=== PATIENT | male | born 1985 | race Caucasian/White ===

== ENCOUNTER 2018-04-29 12:51 | Emergency (ER) | payer SELFPAY ==
[~2018-04-29] VITALS: Ht 172.7 cm; Wt 115.7 kg
[2018-04-29] MEDS ORDERED: TAMSULOSIN 0.4 MG CAP.ER.24H. PO ONE (13:15)
[2018-04-29] MEDS ORDERED: MORPHINE SULFATE 10 MG/ML VIAL. IV ONE (13:15)
[2018-04-29] MEDS ORDERED: KETOROLAC 30 MG/ML VIAL. IV ONE (13:15)
--- NOTE | 2018-04-29 13:15 | PHYS DOC ---
Adult General Chief Complaint Chief Complaint: FLANK PAIN HPI HPI Patient is a 32 year old male who presents with 10 out of 10 left flank pain radiating to the left abdomen that began 3 days ago. Patient denies any fever. He states he is feeling nauseated though he just came from the mother's . Patient describes the pain as cramping and constant. He states he took hydrocodone with no relief. Patient denies any personal history of kidney stones but states he has extensive family history of kidney stones. Patient denies any hematuria. Denies any urgency frequency or dysuria. Review of Systems Review of Systems Constitutional: Denies fever or chills [] Eyes: Denies change in visual acuity, redness, or eye pain [] HENT: Denies nasal congestion or sore throat [] Respiratory: Denies cough or shortness of breath [] Cardiovascular: No additional information not addressed in HPI [] GI: Denies abdominal pain, nausea, vomiting, bloody stools or diarrhea [] : Reports left flank pain. Denies dysuria or hematuria [] Musculoskeletal: Denies back pain or joint pain [] Integument: Denies rash or skin lesions [] Neurologic: Denies headache, focal weakness or sensory changes [] All other systems were reviewed and found to be within normal limits, except as documented in this note. Current Medications Current Medications Current Medications Medications (Trade) Dose Ordered Sig/Michaela Start Time Stop Time Status Last Admin Dose Admin Ketorolac Tromethamine (Toradol 30mg Vial) 30 mg 1X ONCE 04/29/18 13:15 04/29/18 13:16 DC 04/29/18 13:34 30 MG Morphine Sulfate (Morphine Sulfate) 5 mg 1X ONCE 04/29/18 13:15 04/29/18 13:16 DC 04/29/18 13:34 5 MG Tamsulosin HCl (Flomax) 0.4 mg 1X ONCE 04/29/18 13:15 04/29/18 13:16 DC 04/29/18 13:33 0.4 MG Allergies Allergies Allergies Coded Allergies Type Severity Reaction Last Updated Verified Penicillins Allergy Intermediate Rash 04/29/18 Yes amoxicillin Allergy Intermediate Rash 04/29/18 Yes Physical Exam Physical Exam Constitutional: Well developed, well nourished, no acute distress, non-toxic appearance. [] HENT: Normocephalic, atraumatic, bilateral external ears normal, oropharynx moist, no oral exudates, nose normal. [] Eyes: PERRLA, EOMI, conjunctiva normal, no discharge. [] Neck: Normal range of motion, no tenderness, supple, no stridor. [] Cardiovascular:Heart rate regular rhythm, no murmur [] Lungs & Thorax: Bilateral breath sounds clear to auscultation [] Abdomen: Bowel sounds normal, soft, no tenderness, no masses, no pulsatile masses. [] Skin: Warm, dry, no erythema, no rash. [] Back: No tenderness, moderate left CVA tenderness. [] Extremities: No tenderness, no cyanosis, no clubbing, ROM intact, no edema. [] Neurologic: Alert and oriented X 3, normal motor function, normal sensory function, no focal deficits noted. [] Psychologic: Appears anxious. Current Patient Data Vital Signs Vital Signs Date Time Temp Pulse Resp B/P (MAP) Pulse Ox O2 Delivery O2 Flow Rate FiO2 04/29/18 13:11 98.0 72 22 138/86 (103) 97 Room Air 98.0 Lab Values Laboratory Tests Test 04/29/18 13:00 04/29/18 13:25 Urine Collection Type Void Urine Color Yellow Urine Clarity Clear Urine pH 5.5 Urine Specific Clifford 1.020 Urine Protein Negative mg/dL (NEG-TRACE) Urine Glucose (UA) Negative mg/dL (NEG) Urine Ketones (Stick) Negative mg/dL (NEG) Urine Blood Small (NEG) Urine Nitrite Negative (NEG) Urine Bilirubin Negative (NEG) Urine Urobilinogen Dipstick 0.2 mg/dL (0.2 mg/dL) Urine Leukocyte Esterase Negative (NEG) Urine RBC 6-10 /HPF (0-2) Urine WBC 0 /HPF (0-4) Urine Squamous Epithelial Cells Occ /LPF Urine Bacteria 0 /HPF (0-FEW) Urine Mucus Mod /LPF White Blood Count 9.1 x10^3/uL (4.0-11.0) Red Blood Count 5.25 x10^6/uL (4.30-5.70) Hemoglobin 15.0 g/dL (13.0-17.5) Hematocrit 44.3 % (39.0-53.0) Mean Corpuscular Volume 84 fL (79-100) Mean Corpuscular Hemoglobin 29 pg (25-35) Mean Corpuscular Hemoglobin Concent 34 g/dL (31-37) Red Cell Distribution Width 13.3 % (11.5-14.5) Platelet Count 319 x10^3/uL (140-400) Neutrophils (%) (Auto) 66 % (31-73) Lymphocytes (%) (Auto) 25 % (24-48) Monocytes (%) (Auto) 7 % (0-9) Eosinophils (%) (Auto) 2 % (0-3) Basophils (%) (Auto) 1 % (0-3) Neutrophils # (Auto) 6.0 x10^3uL (1.8-7.7) Lymphocytes # (Auto) 2.2 x10^3/uL (1.0-4.8) Monocytes # (Auto) 0.6 x10^3/uL (0.0-1.1) Eosinophils # (Auto) 0.2 x10^3/uL (0.0-0.7) Basophils # (Auto) 0.0 x10^3/uL (0.0-0.2) Sodium Level 138 mmol/L (136-145) Potassium Level 4.1 mmol/L (3.5-5.1) Chloride Level 101 mmol/L (98-107) Carbon Dioxide Level 27 mmol/L (21-32) Anion Gap 10 (6-14) Blood Urea Nitrogen 15 mg/dL (8-26) Creatinine 1.1 mg/dL (0.7-1.3) Estimated GFR (Cockcroft-Gault) 77.6 BUN/Creatinine Ratio 14 (6-20) Glucose Level 98 mg/dL (70-99) Calcium Level 9.1 mg/dL (8.5-10.1) Total Bilirubin 0.5 mg/dL (0.2-1.0) Aspartate Amino Transferase (AST) 26 U/L (15-37) Alanine Aminotransferase (ALT) 59 U/L (16-63) Alkaline Phosphatase 85 U/L (46-116) Total Protein 7.9 g/dL (6.4-8.2) Albumin 4.1 g/dL (3.4-5.0) Albumin/Globulin Ratio 1.1 (1.0-1.7) Lipase 81 U/L (73-393) Laboratory Tests 04/29/18 13:25 Laboratory Tests 04/29/18 13:25 EKG EKG [] Radiology/Procedures Radiology/Procedures []PROCEDURE: CT ABDOMEN PELVIS WO CONTRAST EXAM: CT Abdomen and Pelvis without IV contrast CLINICAL HISTORY: INTERMITTENT LEFT SIDE FLANK PAIN X3DAYS. NO PRIORS COMPARISON: none TECHNIQUE: Helical CT of the abdomen and pelvis without intravenous contrast. Axial, coronal and sagittal reformatted images were generated. PQRS compliance statement - One or more of the following individualized dose reduction techniques were utilized for this study: 1. Automated exposure control 2. Adjustment of the mA and/or kV according to patient size 3. Use of iterative reconstruction technique FINDINGS: Lack of intravenous contrast limits evaluation of solid organs, vasculature, and lymph nodes. Lower chest: Patchy middle and lingular lobe opacities likely atelectasis. Abdomen and Pelvis: Low-attenuation of the liver consistent with hepatic steatosis. Associated fatty sparing is seen in the gallbladder fossa. Gallbladder is unremarkable. No biliary ductal dilatation. Adrenal glands are normal. No focal renal lesion. No hydronephrosis. No hydroureter. A 4 mm calculus is seen at the left ureterovesicular junction or dependent bladder. Moderate colonic stool content is seen. No evidence of bowel obstruction. Appendix is normal. No abdominal or pelvic ascites. Small fat-containing femoral hernia. Bones: Osseous structures are unremarkable. IMPRESSION: 1. 4 mm calculus at the left ureterovesicular junction or dependent aspect of the bladder. No hydronephrosis or hydroureter. 2. Hepatic steatosis. 3. Small fat-containing periumbilical hernia. Electronically signed by: Edenilson Gonzalez MD (04/29/2018 1:51 PM) [facility] DICTATED and SIGNED BY: EDENILSON GONZALEZ MD DATE: 04/29/18 9551 Course & Med Decision Making Course & Med Decision Making Pertinent Labs and Imaging studies reviewed. (See chart for details) This is a 32-year-old male patient presenting to the ED today with left flank pain that began 3 days ago. Urine analysis is negative for infection, noted for small amount of blood. CBC with normal WBC, CMP with no acute findings. CT of the abdomen and pelvic with no contrast was noted for 4 mm stone at the left UVJ , no hydronephrosis, no hydroureter. Patient was given morphine, Flomax, Toradol and Zofran and IV fluids in the ED with good relief. He'll be discharged with Zofran, Flomax and hydrocodone as needed for pain. Follow-up with the urologist next week if symptoms persist. Dragon Disclaimer Dragon Disclaimer This electronic medical record was generated, in whole or in part, using a voice recognition dictation system. Departure Departure Impression: Primary Impression: Kidney stone Disposition: HOME, SELF-CARE Condition: STABLE Referrals: JOHN FRAIRE MD follow up next week Patient Instructions: Kidney Stones, [id number] Additional Instructions: You were evaluated in the emergency room and noted to have a 4 mm kidney stone. This size of a stone typically passes on its own. Take the prescribed medications as ordered. Follow-up with the provided urologist next week if symptoms persist. Come back to the ED at any point symptoms worsen. Scripts Naproxen (NAPROXEN) 500 Mg Tablet 1 TAB PO BID, #60 TAB 1 Refill Prov: CAITLIN HAUSER APRN 04/29/18 Ondansetron (ZOFRAN ODT) 4 Mg Tab.rapdis 1 TAB SL Q8HRS, #15 TAB Prov: CAITLIN HAUSER APRN 04/29/18 Tamsulosin Hcl (FLOMAX) 0.4 Mg Cap.er.24h 1 CAP PO DAILY, #7 CAP 0 Refills Prov: CAITLIN HAUSER APRN 04/29/18 Hydrocodone/Apap 5-325 (NORCO 5-325 TABLET) 1 Each Tablet 1-2 TAB PO Q4-6HRS PRN for PAIN, #20 TAB Prov: CAITLIN HAUSER APRN 04/29/18 CAITLIN HAUSER APRN Apr 29, 2018 13:15
[2018-04-29 13:18] LABS: BILIRUBIN,URINE NEGATIVE (NEG); CLARITY,URINE CLEAR; COLOR,URINE YELLOW; NITRITE,URINE NEGATIVE (NEG); PH,URINE 5.5; PROTEIN,URINE NEGATIVE (NEG-TRACE); UROBILINOGEN,URINE 0.2 mg/dL (0.2 mg/dL)
[2018-04-29 13:37] LABS: BACTERIA,URINE 0 /HPF (0-FEW); SQUAMOUS EPITHELIAL CELL,UR OCC /LPF; WBC,URINE 0 /HPF (0-4)
[2018-04-29 13:49] LABS: BASO % 1 % (0-3); CALCIUM 9.1 mg/dL (8.5-10.1); CREATININE 1.1 mg/dL (0.7-1.3); EOS # 0.2 x10^3/uL (0.0-0.7); EOS % 2 % (0-3); GFR 77.6; HEMATOCRIT 44.3 % (39.0-53.0); LYMPH # 2.2 x10^3/uL (1.0-4.8); LYMPH % 25 % (24-48); MEAN CORPUSCULAR HEMOGLOBIN 29 pg (25-35); MEAN CORPUSCULAR HGB CONC 34 g/dL (31-37); MEAN CORPUSCULAR VOLUME 84 fL (79-100); MONO # 0.6 x10^3/uL (0.0-1.1); MONO % 7 % (0-9); NEUT % 66 % (31-73); PLATELET COUNT 319 x10^3/uL (140-400); POTASSIUM 4.1 mmol/L (3.5-5.1); RED BLOOD COUNT 5.25 x10^6/uL (4.30-5.70); RED CELL DISTRIBUTION WIDTH 13.3 % (11.5-14.5); WHITE BLOOD COUNT 9.1 x10^3/uL (4.0-11.0)
--- NOTE | 2018-04-29 13:54 | RAD ---
EXAM: CT Abdomen and Pelvis without IV contrast CLINICAL HISTORY: INTERMITTENT LEFT SIDE FLANK PAIN X3DAYS. NO PRIORS COMPARISON: none TECHNIQUE: Helical CT of the abdomen and pelvis without intravenous contrast. Axial, coronal and sagittal reformatted images were generated. PQRS compliance statement - One or more of the following individualized dose reduction techniques were utilized for this study: 1. Automated exposure control 2. Adjustment of the mA and/or kV according to patient size 3. Use of iterative reconstruction technique FINDINGS: Lack of intravenous contrast limits evaluation of solid organs, vasculature, and lymph nodes. Lower chest: Patchy middle and lingular lobe opacities likely atelectasis. Abdomen and Pelvis: Low-attenuation of the liver consistent with hepatic steatosis. Associated fatty sparing is seen in the gallbladder fossa. Gallbladder is unremarkable. No biliary ductal dilatation. Adrenal glands are normal. No focal renal lesion. No hydronephrosis. No hydroureter. A 4 mm calculus is seen at the left ureterovesicular junction or dependent bladder. Moderate colonic stool content is seen. No evidence of bowel obstruction. Appendix is normal. No abdominal or pelvic ascites. Small fat-containing femoral hernia. Bones: Osseous structures are unremarkable. IMPRESSION: 1. 4 mm calculus at the left ureterovesicular junction or dependent aspect of the bladder. No hydronephrosis or hydroureter. 2. Hepatic steatosis. 3. Small fat-containing periumbilical hernia. Electronically signed by: Edenilson Gonzalez MD (04/29/2018 1:51 PM) [facility]
[2018-04-29 13:55] LABS: ALBUMIN 4.1 g/dL (3.4-5.0); ALBUMIN/GLOBULIN RATIO 1.1 (1.0-1.7); TOTAL BILIRUBIN 0.5 mg/dL (0.2-1.0); TOTAL PROTEIN 7.9 g/dL (6.4-8.2)
[2018-04-29] MEDS ORDERED: HYDR-3164 PO (14:25)
[2018-04-29] MEDS ORDERED: NAPR-514 PO (14:25)
[2018-04-29] MEDS ORDERED: ONDA4TAB10 SL (14:25)
[2018-04-29] MEDS ORDERED: TAMS0.4C97 PO (14:25)
[2018-04-29 14:30] VITALS: BP 136/77
[2018-04-29] MEDS ORDERED: HYDROcodone/APAP 5/325MG 1 TAB TABLET PO ONE (14:30)
== END 2018-04-29 15:04 | disposition home or self-care (01) ==
LOC: ER 12:51
DX: N20.0 Calculus of kidney (principal); R11.0 Nausea; K42.9 Umbilical hernia without obstruction or gangrene; K76.0 Fatty (change of) liver, not elsewhere classified; Z88.0 Allergy status to penicillin; Z88.1 Allergy status to other antibiotic agents
CPT/HCPCS: 36415; 74176; 80053; 81001; 83690; 85025; 96374; 96375; 99285; J1885; J2270